=== PATIENT | female | born 1980 | race Caucasian/White ===

== ENCOUNTER 2025-02-22 12:41 | Emergency (ER) | payer BC, SELFPAY ==
[2025-02-22] VITALS (30 sets, daily range): BP systolic 126–146; BP diastolic 67–122; BMI 33.4
[2025-02-22] MEDS: ZOFRAN 4 MG IV (13:12)
[2025-02-22] MEDS: DILAUDID 1 MG IV (13:13)
--- NOTE | 2025-02-22 16:18 | ED.GENMED ---
History of Present Illness
General
Chief Complaint: Musculo-Skeletal Complaint
Source: patient and spouse
Exam Limitations: none
Time Seen by Provider: 02/22/25 12:53
History of Present Illness
History of Present Illness:
Note:
CHIEF COMPLAINT(S)
Right ankle injury.
HISTORY OF PRESENT ILLNESS
The patient is a 44-year-old female who slipped on the ice, leading to a right ankle injury. She described falling backward and extending her arm to stabilize herself, but her right leg slipped underneath her. During the incident, she heard a pop in
her right ankle and is concerned about a possible fracture. The patient reports experiencing a moderate to severe amount of pain in the affected area. She denies any bleeding, does not have any head injury, and does not believe she injured her hand
or wrist despite putting her hand out for support. She denies any significant past medical history but acknowledges a history of asthma. The patient has not consumed any food or beverages today.
PAST MEDICAL AND SURGICAL HISTORY
Asthma.
PHYSICAL EXAM
General: Moderate distress due to pain.
Head: Atraumatic.
Eyes: Pupils react to light, extraocular muscles are intact.
Respiratory: No respiratory distress.
Neck: No midline cervical spine tenderness.
Musculoskeletal: Swelling and deformity noted in the right ankle; normal distal pulses in bilateral feet. Minor abrasion in the right hand but no tenderness in the distal radius, dorsal ulna, or dorsal wrist. Hand bones are non-tender. Skin remains
intact.
PROBLEM LIST
Acute Problems:
- Right ankle injury with suspected fracture
CHRONIC MEDICAL CONDITIONS SIGNIFICANTLY AFFECTING CARE
- Asthma
DIFFERENTIAL DIAGNOSIS
The Differential Diagnosis includes, in no particular order and is not limited to:
1. Ankle fracture
2. Ankle sprain
3. Ligament injury
4. Tendon injury
5. Contusion
6. Joint dislocation
7. Ankle strain
8. Bone bruise
9. Achilles tendon injury
10. Osteochondral injury
Disposition:
SUMMARY OF ENCOUNTER
The patient, a 44-year-old female, was seen in the emergency department following a right ankle injury after slipping on ice. The patient experienced moderate to severe pain and noted a popping sound during the incident, raising concerns about a
fracture. A physical examination revealed swelling and deformity in the right ankle. Ankle reduction was performed satisfactorily. A CT scan was ordered at the request of the orthopedic team. The patient experienced moderate distress due to pain but
had no head injury or other significant injuries.
DISPOSITION
Discharge.
PLAN
The patient will be discharged with crutches, instructed to maintain [id number] status on the affected leg, and provided with pain control measures. Follow-up with orthopedic care is advised for further evaluation and treatment.
PATIENT EDUCATION AND COUNSELING
The patient was educated about the importance of not bearing weight on the injured ankle and instructed on the use of crutches for mobility. Pain management strategies were also discussed.
FOLLOW-UP INSTRUCTIONS
The patient is to follow up with an customer resolution specialist for further evaluation and management of the ankle injury.
MEDICATION RECONCILIATION
Pain control medication will be provided as part of discharge planning, hydrocodone ordered. Pt given IV pain control/opiates and IV sedation
MEDICAL DECISION MAKING
- Number and Complexity of Problems Addressed: Chronic conditions affecting care includes asthma. Differential diagnosis considered factors such as ankle fracture, sprain, ligament or tendon injuries, contusions, joint dislocation, bone bruise, and
more.
- Data:
- Category 1: CT scan was ordered and reviewed following ankle reduction.
- Category 3: Management was discussed with Dr. Peralta from orthopedics to determine the best course of action for the patients injury.
- Risk: Consideration of Admission/Observation: Escalation of care including admission/observation was considered given the complexity and risk of the patients presenting complaint, exam findings, and their underlying comorbidities. However,
ultimately I feel the patient is safe for outpatient management with close follow-up. Reasoning: Work-up reassuring, does not reveal any acute life/organ threatening processes, the patients symptoms are well controlled upon reevaluation,
reexamination is reassuring, vitals are stable, patient agreeable with discharge, reliable for follow-up.
DIAGNOSIS
Closed, right trimalleolar ankle fracture
Past History
Past History
ED Past Medical History: None
ED Past Surgical History: None
Social History
Tobacco: Non-smoker
Phy Exam
Physical Exam
Physical Exam:
.
Course
Orders/Labs/Results
Orders:
Orders
02/22/25 12:49
Ankle, Right 3 view CR [CR Ankle - Right Min 3 Views *] Urgent
Comment:
Reason For Exam: slipped on ice right ankle pain and deformity
02/22/25 13:10
HYDROmorphone [Dilaudid] 1 mg .ROUTE .STK-MED ONE
Ondansetron Injectable [Zofran] 4 mg .ROUTE .STK-MED ONE
02/22/25 13:12
HYDROmorphone [Dilaudid] 1 mg IV NOW STA
Ondansetron Injectable [Zofran] 4 mg IV NOW STA
02/22/25 13:42
Propofol [Diprivan] 40 ml .ROUTE .STK-MED
02/22/25 14:24
CR Ankle - Right 2 Views Urgent
Reason For Exam: post reduction
02/22/25 14:52
CT Lower Ext W/o Iv Cont Rt Urgent
Comment: ortho request
Reason For Exam: trimall fx,
02/22/25 16:51
Crutches-Treatment ONCE
Vital Signs
Initial and Last Documented VS:
Initial Vital Signs
Pulse Resp Pulse Ox
110 18 98
02/22/25 12:43 02/22/25 12:43 02/22/25 12:43
Last Documented Vital Signs
Temp Pulse Resp BP Pulse Ox
98.2 F 74 13 141/87 99
02/22/25 14:45 02/22/25 16:01 02/22/25 16:01 02/22/25 15:45 02/22/25 16:20
Procedures
Moderate Sedation
ASA Risk Score: Class I
Chart and allergies reviewed: Yes
Consent for anesthesia obtained: Yes
Time out completed (validating right patient & procedure): Yes
Moderate Sedation Start Time(when first medication is given): 14:11
History of difficult intubation: No
Airway free of obstruction: Yes
Patient has a gag reflex: Yes
Patient is able to open mouth: Yes
Patient has no dentures: Yes
Patient has no loose teeth: Yes
Medication administered by Provider during Moderate Sedation: IV Propofol (mg)
Total dose administered: 190
Time drug administered: 14:11
Moderate Sedation Procedure End Time: 14:29
Joint/Fracture Reduction
Right Ankle:
Indication for procedure:: displaced ankle fracture
Procedure completed by: Dr. Irizarry
Consent form signed: Yes
Joint reduced: with anesthesia sedation
Injury was: closed
Further treatement: needs further treatment
Post reduction exam: stable
Capillary Refill: normal
Normal distal neurovascular exam?: Yes
*Pulse Oximetry
SaO2: 99
Oxygen Mode of Delivery: Room air
Patient hypoxic: no
*Critical Care Note
Total Time (30-74mins, 75-104mins- exclusive of procedures): Not Applicable
ED Attending Note
-
Portions of this chart may have been created with voice recognition software.� Occasional wrong word or��sound alike� substitutions may have occurred due to the inherent limitations of voice recognition software.
Discharge Plan
Departure
Patient Disposition: Home (Routine Discharge)
Date of Disposition: 02/22/25
Time of Disposition: 16:24
Patient with high blood pressure during this ER visit?: No
Discharge Problem:
Closed trimalleolar fracture
Instructions: Ankle Fracture (DC)
Prescriptions:
New
hydrocodone-acetaminophen 5-325 mg tablet
2 tab PO Q6H PRN (Reason: Pain) Qty: 15 0RF
Referrals:
Musa Moreno MD [Family Provider, Family Practice]
Daniel Peralta MD [Active, Orthopedics]
Stand Alone Forms: Return to Work
Activity Restrictions/Additional Instructions:
Please do not bear weight on your injured ankle. Please keep splint in place. Please elevate and ice aggressively. Use ibuprofen every 6 hours for pain and swelling. Return Caitlyn for numbness, discoloration of the toes, worsening symptoms or
any other concerns. Please see orthopedics in the next 3 days for follow-up and reevaluation.
Interventions
Interventions:
*General Assessment Last Done: 02/22/25 12:43
*Neglect/Abuse Screening Last Done: 02/22/25 12:43
*ED COVID-19 Vaccine History Last Done: 02/22/25 17:30
*ED Influenza Vaccine History Last Done: 02/22/25 12:43
[facility] Risk Assessment Tool Last Done: 02/22/25 13:40
*Risk Screen - Suicide (C-SSRS) Last Done: 02/22/25 12:43
*Nursing Disposition Last Done: 02/22/25 17:30
ED-Musculoskeletal Assessment Last Done: 02/22/25 14:26
Discharge Date and Time
Discharge Date/Time: 02/22/25 17:30
Print Language: FILIPINO
== END 2025-02-22 17:30 | disposition home or self-care (01) ==
LOC: EMR 12:41
PROVIDERS: EMERGENCY PHYSICIAN Emergency Medicine; FAMILY PHYSICIAN Family Medicine
DX: S82.851A Displaced trimalleolar fracture of right lower leg, initial encounter for closed fracture (principal); W00.0XXA Fall on same level due to ice and snow, initial encounter; J45.909 Unspecified asthma, uncomplicated
CPT/HCPCS: 27818; 99152; 96374; 96375; 99285; 73600; 73610; 73700